=== PATIENT | female | born 1965 | race African-American/Black ===

== ENCOUNTER 2022-03-03 11:49 | Emergency (ER) | payer OTHER ==
[2022-03-03 12:01] VITALS: BP 134/91; PULSE 76; RESP 19; TEMP 97.6; BMI 32.3
== END 2022-03-03 13:50 | disposition home or self-care (01) ==
LOC: JERFT 11:49 → JER 11:49 → JERFT 13:50
DX: S83.92XA Sprain of unspecified site of left knee, initial encounter (principal); X50.0XXA Overexertion from strenuous movement or load, initial encounter; W01.0XXA Fall on same level from slipping, tripping and stumbling without subsequent striking against object, initial encounter
CPT/HCPCS: 73560-TC-LT-FY; 99283-25